=== PATIENT | male | born 1980 | race Caucasian/White ===

== ENCOUNTER 2021-03-08 14:12 | Emergency (ER) | payer OTHER, SELFPAY ==
[2021-03-08 14:43] VITALS: BP 181/122; PULSE 84; RESP 18; TEMP 37.6; O2SAT 98
--- NOTE | 2021-03-08 15:54 | ED.URI ---
HPI - URI/Sore Throat General Chief Complaint: Upper Respiratory Infection Stated Complaint: headache weak cough Source: patient and RN notes reviewed History of Present Illness HPI Narrative: This is a 40-year-old male presented to urgent care with complaints of shortness of breath, fatigue, productive cough with yellow sputum and headache that he has had since yesterday. Patient did test positive for influenza. The patient denies , CP, palpitation, extremity numbness, lightheadedness, dizziness, constipation, diarrhea, chills, or fever. Related Data Home Medications Medication Instructions Recorded Confirmed carvedilol 25 mg PO BID 03/08/21 03/08/21 cyanocobalamin (vitamin B-12) 1,000 mcg PO DAILY 03/08/21 03/08/21 ezetimibe 10 mg PO DAILY 03/08/21 03/08/21 hydrocodone-acetaminophen 5 tablet PO DIRECTED PRN 03/08/21 03/08/21 naproxen 500 mg PO BID PRN 03/08/21 03/08/21 ondansetron 4 mg PO DIRECTED PRN 03/08/21 03/08/21 spironolactone 25 mg PO DAILY 03/08/21 03/08/21 Allergies Allergy/AdvReac Type Severity Reaction Status Date / Time No Known Allergies Allergy Verified 03/08/21 15:21 Review of Systems Review of Systems: A 14 organ system Review of Systems was performed and pertinent positives included in the HPI, otherwise remaining ROS is negative. [facility] Family History Family History (Updated 03/08/21 @ 15:55 by JAIME Ford-C) Other Family history non-contributory Exam Narrative: GENERAL: This is a well-nourished, well-developed patient, in no apparent distress. HEAD: normocephalic, atraumatic. EYES: PERRL. Sclera clear/white. Vision is grossly intact. EARS: External ears normal, auditory canals clear and without drainage, TMs normal without perforation. Hearing grossly intact. NOSE: External nose normal with no obvious nasal discharge, nares without redness, no rhinorrhea. THROAT: Mucous membranes moist, posterior pharynx clear. NECK: Neck supple, non-tender without lymphadenopathy, masses or thyromegaly. CARDIOVASCULAR: Regular rate and rhythm without murmurs, gallops, or rubs. RESPIRATORY: Clear to auscultation. Breath sounds equal bilaterally. No wheezes, rales, or rhonchi. GASTROINTESTINAL: Abdomen soft, non-tender, nondistended. Bowel sounds are active. No hepato-splenomegaly, or palpable masses. No guarding. SKIN: warm, intact with no suspicious lesions or rash, good texture and turgor. NEURO: awake, alert, and oriented to person, place and time. There were no obvious focal neurologic abnormalities. Steady gait EXTREMITIES: Normal range of motion. No edema. No calf tenderness. Negative Homans sign bilaterally. BACK: Nontender without deformity or crepitance. No flank tenderness. Course Course Emergency Course: Patient will be treated for influenza with Tamiflu, albuterol, guaifenesin, Tessalon Perles Vital Signs Vital signs: Vital Signs Temperature 99.6 F 03/08/21 14:43 Pulse Rate 84 03/08/21 14:43 Respiratory Rate 18 03/08/21 14:43 Blood Pressure 181/122 H 03/08/21 14:43 Pulse Oximetry 98 03/08/21 14:43 Temperature 99.6 F 03/08/21 14:43 Pulse Rate 84 03/08/21 14:43 Respiratory Rate 18 03/08/21 14:43 Blood Pressure 181/122 H 03/08/21 14:43 Pulse Oximetry 98 03/08/21 14:43 MDM - URI/Sore Throat Differential Diagnosis Differential diagnosis: Likely upper respiratory infection, viral infection, influenza and pharyngitis Lab Data Labs: Influenza A Screen Positive Reference Range: Negative Influenza B Screen Negative Reference Range: Negative Discharge Plan Discharge Clinical Impression: Influenza Patient Disposition: Home, Self-Care Condition: Stable Instructions: Antibiotic Form, Influenza (ED) Additional Instructions: This is likely viral illness, no antibiotic is needed at this time. Treatment i
== END 2021-03-08 15:55 | disposition home or self-care (01) ==
PROVIDERS: Emergency Provider Nurse Practitioner
DX: J11.1 Influenza due to unidentified influenza virus with other respiratory manifestations (principal); Z20.822 Contact with and (suspected) exposure to COVID-19
CPT/HCPCS: 87426; 87804; 99213; C9803; G0463